=== PATIENT | female | born 1985 | race Caucasian/White ===

== ENCOUNTER 2020-05-31 15:43 | Emergency (ER) | payer OTHER, SELFPAY ==
[2020-05-31 15:59] VITALS: BP 114/50; PULSE 85; RESP 16; TEMP 37.3; O2SAT 100
--- NOTE | 2020-05-31 16:22 | ED.BACK ---
HPI - Back Pain/Injury General Chief Complaint: Back Pain/Injury Stated Complaint: back pain Time Seen by Provider: 05/31/20 16:03 Source: patient and RN notes reviewed Mode of arrival: ambulatory Limitations: no limitations History of Present Illness HPI Narrative: Patient presents today complaining of right lower back pain that is worse when she bends or twists. Injury occurred 2 days ago when she bent over to pick up man her child. Slight radiation of the pain down her right leg when she bends over. Currently rates her pain 5/10 and describes the pain as dull. She has been taking ibuprofen and Tylenol with mild relief. Smokes 0.5 packs/day. Denies numbness or tingling in the arms or legs. Denies any loss of bowel or bladder control. Denies numbness or tingling in the genitals. Denies chronic back pain. MD elicited complaint: back pain Related Data Allergies Allergy/AdvReac Type Severity Reaction Status Date / Time No Known Allergies Allergy Unknown Verified 05/31/20 16:04 Review of Systems Review of Systems: Narrative: CONSTITUTIONAL: Denies body aches, fever, chills, or sweats. EYES: Denies visual changes, redness, or discharge. ENT: Denies rhinorrhea, congestion, sore throat, or otalgia. CARDIOVASCULAR: Denies chest pain, palpitations, or edema. RESPIRATORY: Denies cough or dyspnea. GASTROINTESTINAL: Denies abdominal pain, nausea, vomiting, or diarrhea. GENITOURINARY: Denies dysuria or hematuria. SKIN: Denies rash, itching, or wounds. MUSCULOSKELETAL: Denies joint pain, or myalgia. + Right low back pain NEUROLOGIC: Denies headache, numbness, tingling, or weakness. PSYCH: Denies depression or anxiety. [facility] Family History Family History (Updated 05/11/14 @ 07:13 by DOCTOR UNKNOWN) Father Family history of rheumatoid arthritis Mother Family history of rheumatoid arthritis Social History Social History Smoking status: Current every day smoker Alcohol intake: current Gender identity (if verbalized by the patient): Female Comments At time of signature, I have reviewed and agree with nursing past medical, surgical, social and family history unless otherwise noted. Please see nursing chart for further information. There is no relevant family history pertinent to the presenting complaint Exam Narrative: Exam Narrative: GENERAL: Well-appearing, well-nourished, and in no acute distress. HEAD: Normocephalic, atraumatic. EYES: EOMI. No redness or drainage. Conjunctivae normal. ENT: Mucous membranes pink and moist. NECK: Normal AROM. CHEST: No respiratory distress. MUSCULOSKELETAL: No bony tenderness of the thoracic or lumbar spine. Right lumbar paraspinal muscle tenderness that does not extend to the SI joint. Distal sensation intact. Saddle sensation intact. Capillary refill normal. Pedal pulses normal. Foot push and pulls equal and strong. No deformity or step-off noted of the spine. EXTREMITIES: Normal range of motion. No edema. SKIN: Warm, dry, no rash. Capillary refill normal. Normal skin turgor. NEURO: No focal deficits. Alert and oriented x3. Gait steady. PSYCH: Normal affect. No signs of depression or anxiety. Course Vital Signs Vital signs: Vital Signs Temperature 99.1 F 05/31/20 15:59 Pulse Rate 85 05/31/20 15:59 Respiratory Rate 16 05/31/20 15:59 Blood Pressure 114/50 L 05/31/20 15:59 Pulse Oximetry 100 05/31/20 15:59 Temperature 99.1 F 05/31/20 15:59 Pulse Rate 85 05/31/20 15:59 Respiratory Rate 16 05/31/20 15:59 Blood Pressure 114/50 L 05/31/20 15:59 Pulse Oximetry 100 05/31/20 15:59 Reviewed MDM - Back Pain/Injury Differential Diagnosis Differential diagnosis: Likely lumbar radiculopathy, sciatica and strain of lumbar region Critical Care Time Critical Care Time Critical Care Time: No Discharge Plan Discharge Clinical Impression: Strain of lumbar region Qualifiers: Encounter type: initial encounter Qualified Code(s): S3
== END 2020-05-31 16:30 | disposition home or self-care (01) ==
PROVIDERS: Emergency Provider Nurse Practitioner
DX: S39.012A Strain of muscle, fascia and tendon of lower back, initial encounter (principal); F17.290 Nicotine dependence, other tobacco product, uncomplicated; X50.0XXA Overexertion from strenuous movement or load, initial encounter
CPT/HCPCS: 99213; G0463

== ENCOUNTER 2020-06-16 16:41 | Emergency (ER) | payer OTHER, SELFPAY ==
[2020-06-16 16:51] VITALS: BP 124/71; PULSE 87; RESP 18; TEMP 36.9; O2SAT 99
--- NOTE | 2020-06-16 16:52 | ED.URI ---
HPI - URI/Sore Throat General Chief Complaint: Upper Respiratory Infection Stated Complaint: Congestion Time Seen by Provider: 06/16/20 16:53 Source: patient and RN notes reviewed Mode of arrival: ambulatory Limitations: no limitations History of Present Illness HPI Narrative: 34 year old female who presents to [facility] care with complaints of sore throat since Thursday and for the past 2 days she has experienced acute cough with chest congestion. Patient states that she usually comes down with a respiratory infection at change of seasons every year. Patient denies any shortness of breath or any wheezing, states that she is coughing up green mucous. Patient states that she has a lot of nasal congestion, with sinus pressure, headache and sore throat. Patient states that she has not had a fever that she know of, has had general myalgia and states that she feels bad and has been unable to work the past 2 nights.Patient has clear lung sounds with no wheezing or accessory muscle use with SAO2 99% on room air. MD elicited complaint: cough and other (chest congestion) Pertinent past history: seasonal allergies and other (bronchitis) Onset (ago): day(s) (5 days) Consistency: progressively worsening Severity: similar to previous episodes Description of mucous: green Able to tolerate fluids by mouth: Yes Exacerbating factors: swallowing (sore throat), exertion and deep breaths (increased coughing) Relieving factors: nothing Associated symptoms: headache, rhinorrhea, nasal congestion, sore throat, cough and other (chest congestion) Treatments prior to arrival: none Related Data Home Medications Medication Instructions Recorded Confirmed diphenhydramine HCl [Benadryl] 06/16/20 Allergies Allergy/AdvReac Type Severity Reaction Status Date / Time No Known Allergies Allergy Unknown Verified 05/31/20 16:04 Review of Systems Review of Systems: Narrative: CONSTITUTIONAL: Denies fever, chills, or sweats. EYES: Denies visual changes, redness, or discharge. ENT: positive rhinorrhea, congestion, sore throat, no otalgia. CARDIOVASCULAR: Denies chest pain, palpitations, or edema. RESPIRATORY:Positive cough with expectoration of green mucous denies any dyspnea. GASTROINTESTINAL: Denies abdominal pain, nausea, vomiting, or diarrhea. GENITOURINARY: Denies dysuria or hematuria. SKIN: Denies rash or itching. MUSCULOSKELETAL: Denies back pain, joint pain, general myalgia NEUROLOGIC: Denies headache, numbness, or weakness. PSYCHIATRIC: Denies anxiety or depression. All systems reviewed & are unremarkable except as noted in HPI and below PMFSH Past Medical History Medical History (Updated 06/16/20 @ 18:39 by Jami Joshi NP) Bronchitis Surgical History Surgical History (Updated 06/16/20 @ 18:32 by Jami Joshi NP) H/O LEEP History of dilatation and curettage Previous section Family History Family History (Updated 06/16/20 @ 18:36 by Jami Joshi NP) Father Family history of rheumatoid arthritis Mother Family history of rheumatoid arthritis Other Diabetes mellitus Social History Social History (Updated 06/16/20 @ 18:35 by Jami Joshi NP) Smoking status: Former smoker Smoking end date: 12/14/19 Alcohol intake: current Living arrangements: with family Gender identity (if verbalized by the patient): Female Comments At time of signature, agree with nursing past medical, surgical, social history. There is no relevant family history pertinent to the presenting complaint Exam Narrative: Exam Narrative: GENERAL: Well-appearing, well-nourished, and in no acute distress. HEAD: Normocephalic, atraumatic. EYES: PERRLA and EOMI. ENT: Nares red with rhinorrhea no epistaxis. Mucous membranes moist.TM's normal with good light reflex, some soft wax noted in ear canals,throat red with no tonsil enlargement, no exudates or lesion, post nasal drainage noted to the back of her throat. NECK: Supple.no l
== END 2020-06-16 17:30 | disposition home or self-care (01) ==
PROVIDERS: Emergency Provider Registered Nurse
DX: J06.9 Acute upper respiratory infection, unspecified (principal); J02.9 Acute pharyngitis, unspecified; Z87.891 Personal history of nicotine dependence
CPT/HCPCS: 99213; G0463

== ENCOUNTER 2022-03-31 15:10 | Emergency (ER) | payer OTHER, SELFPAY ==
--- NOTE | ~2022-03-31 | XR_ITS ---
XR foot RT min 3V DATE: 03/31/2022 15:59 INDICATION: Jammed foot. Anterior pain. TECHNIQUE: COMPARISON: None FINDINGS: No fracture or dislocation, periosteal reaction or bone destruction. IMPRESSION: Negative Reviewed, dictated and finalized at location B. IMPRESSION: Negative
--- NOTE | 2022-03-31 15:15 | ED.LOWEXIN ---
HPI - Extremity Injury (Lower) General Chief Complaint: Extremity Injury, Lower Stated Complaint: Right foot injury Time Seen by Provider: 03/31/22 16:07 Source: patient and RN notes reviewed Mode of arrival: ambulatory Limitations: no limitations History of Present Illness HPI Narrative: 36-year-old female presents concern for right foot pain. Reports yesterday she hit the foot on a table. She reports a small abrasion, bruising and tenderness to the medial dorsal aspect of the foot. She denies intervention. She denies decreased sensation, strength, range of motion to the foot or digits MD complaint: foot injury Related Data Allergies Allergy/AdvReac Type Severity Reaction Status Date / Time No Known Allergies Allergy Unknown Verified 05/31/20 16:04 Review of Systems Review of Systems: CONSTITUTIONAL: Denies malaise, chills, sweats, or fever. SKIN: Denies rash or itching, redness, warmth, swelling.. Reports abrasion to the right foot MUSCULOSKELETAL: Reports right foot pain, bruising NEUROLOGIC: Denies numbness, weakness All systems reviewed & are unremarkable except as noted in HPI and below PMFSH Past Medical History Medical History (Updated 03/31/22 @ 16:15 by Reina Coyne NP) Bronchitis Surgical History Surgical History (Updated 06/16/20 @ 18:32 by Jami Joshi NP) H/O LEEP History of dilatation and curettage Previous section Family History Family History (Updated 06/16/20 @ 18:36 by Jami Joshi NP) Father Family history of rheumatoid arthritis Mother Family history of rheumatoid arthritis Other Diabetes mellitus Social History Social History (Updated 06/16/20 @ 18:35 by Jami Joshi NP) Smoking status: Former smoker Smoking end date: 12/14/19 Alcohol intake: current Gender identity (if verbalized by the patient): Female Comments At time of signature, agree with nursing past medical, surgical, social and family history. There is no relevant family history pertinent to the presenting complaint Exam Narrative: GENERAL: Well-appearing, well-nourished, and in no acute distress. HEAD: Normocephalic, atraumatic. EYES: PERRLA, conjunctivae clear NECK: Supple. CHEST: Speaks in full sentences. No respiratory distress. HEART: Regular rate and rhythm. Normal and equal peripheral pulses. EXTREMITIES: Right foot, digits have normal strength and sensation, normal range of motion. Localized dorsal edema, ecchymosis, abrasion approximately 2 cm in diameter. 5/5 strength with digit flexion and extension. Normal sensation with sensitivity to light touch and pain. Dorsal tenderness over the first metatarsal No skin tenting, no devitalized tissue or atrophy, no trophic changes, no obvious deformity, alignment normal, nearby joints and structures intact. Distal pulses palpable and equal bilaterally, skin warm, dry, pink. Capillary refill less than 3 seconds. SKIN: Warm, dry, no rash. NEURO: Alert and oriented x3. PSYCH: Normal mood and affect Course Course Emergency Course: Patient is aware of diagnosis, understands and agrees to treatment plan. Anticipatory guidance given. Patient agrees to follow-up as directed and is aware of reasons to seek care at the emergency department. Portions of this record may have been created with voice recognition software Level of Care: Express Care Visit Vital Signs Vital signs: Reviewed. MDM - Extremity Injury (Lower) MDM Narrative Medical decision making narrative: Patients injury and pain is consistent with musculoskeletal etiology. No signs of neurological or vascular compromise on exam. Compartments and tissues are soft without signs of compartment syndrome. Pain is felt appropriate for further evaluation on an outpatient basis. Imaging Data My impression: Images reviewed, interpreted by radiologist, agree, see report. Radiologist's impression: XR foot RT min 3V DATE: 03/31/2022 15:59 INDICATION: Jammed foot.
[2022-03-31 15:28] VITALS: BP 120/64; PULSE 90; RESP 16; TEMP 37.2; O2SAT 100
== END 2022-03-31 16:24 | disposition home or self-care (01) ==
PROVIDERS: Emergency Provider Nurse Practitioner
DX: S90.31XA Contusion of right foot, initial encounter (principal); W22.03XA Walked into furniture, initial encounter; Z87.891 Personal history of nicotine dependence
CPT/HCPCS: 73630; 81025; 99213; G0463